=== PATIENT | female | born 1985 | race African-American/Black ===

== ENCOUNTER 2017-08-12 18:31 | Inpatient (IN) ==
[2017-08-12] MEDS ORDERED: LACTATED RINGERS 1,000 ML IV ONE (19:06)
[2017-08-12] MEDS ORDERED: ONDANSETRON 4 MG/2 ML VIAL IV ONE (19:43)
[2017-08-12] MEDS ORDERED: MEPERIDINE 25 MG/1 ML VIAL IV ONE (19:44)
[2017-08-12] MEDS ORDERED: ONDANSETRON 4 MG/2 ML VIAL IV PRN (20:21)
[2017-08-12] MEDS ORDERED: MEPERIDINE 50 MG/1 ML VIAL IM PRN (20:21)
[2017-08-12] MEDS ORDERED: LACTATED RINGERS 250 ML IV ONE (20:21)
[2017-08-12] MEDS ORDERED: BUTORPHANOL 1 MG/ML VIAL IV PRN (20:21)
[2017-08-12] MEDS: LACTATED RINGERS 1,000 ML IV SCH (21:09)
[2017-08-12 21:29] LABS: Basophils % 0.2 % (0.0-0.8); Eosinophils % 0.1 % (0.00-10.9); Hematocrit 33.6 VOL% (35.7-47.0); Immature Granulocytes % 0.7 %; Immature Granulocytes Absolute 0.08 #; Lymphocytes # 1.6 10*3/uL (1.4-4.0); Mean Corpuscular HGB Conc 32.7 GM/DL (32-36); Mean Corpuscular Hemoglobin 27 PG (27-34); Mean Corpuscular Volume 81.4 FL (87-102); Mean Platelet Volume 11.8 FL (9.6-12.0); Monocytes # 0.7 10*3/uL (0.11-0.8); Monocytes % 6.5 % (1.7-12.7); Neutrophils # 8.8 10*3/uL (1.4-7.4); Neutrophils % 78.5 % (38.7-73.9); Platelet Count 272 T/CUMM (130-400); Red Blood Count 4.13 MC/CUMM (3.8-5.5); Red Cell Distribution Width 17.1 % (9.3-17.3); White Blood Count 11.2 T/CUMM (4-12)
[2017-08-13] MEDS: MEPERIDINE 50 MG/1 ML VIAL IV PRN ×2 (00:13→05:20)
[2017-08-13] MEDS ORDERED: OXYTOCIN/LR 20 UNIT/1,000 ML BAG IV SCH (00:30)
[2017-08-13] MEDS: LACTATED RINGERS 1,000 ML IV SCH ×2 (05:04→12:45)
[2017-08-13] MEDS ORDERED: diphenhydrAMINE 50 MG/1 ML VIAL IV PRN ×2 (06:13)
[2017-08-13] MEDS ORDERED: hydrOXYzine HCL 25 MG/1 ML VIAL IM PRN (06:13)
[2017-08-13] MEDS ORDERED: ONDANSETRON 4 MG/2 ML VIAL IV ONE (06:13)
[2017-08-13] MEDS ORDERED: PROMETHAZINE 25 MG/1 ML VIAL IM ONE (06:13)
[2017-08-13] MEDS ORDERED: ePHEDrine 50 MG/ML AMP IV PRN (06:13)
[2017-08-13] MEDS ORDERED: FAMOTIDINE 20 MG/2 ML VIAL IV ONE (06:25)
[2017-08-13] MEDS ORDERED: CITRIC ACID/SODIUM CITRATE 30 ML UDCUP PO ONE (06:25)
[2017-08-13] MEDS ORDERED: fentaNYL 2 MCG/ROPIV 0.2% EPID 150 ML EPIDURAL SCH (06:30)
[2017-08-13] MEDS ORDERED: WITCH HAZEL PADS 100/JAR TOP PRN (07:44)
[2017-08-13] MEDS ORDERED: OXYTOCIN/LR 20 UNIT/1,000 ML BAG IV ONE (07:44)
[2017-08-13] MEDS ORDERED: oxyCODONE/ACETAMINOPHEN 5-325 MG TABLET PO PRN ×2 (07:44)
[2017-08-13] MEDS ORDERED: MEASLES/MUMPS/RUBELLA VACCINE 0.5 ML VIAL SUBCUT ONE (07:44)
[2017-08-13] MEDS ORDERED: ACETAMINOPHEN 325 MG TABLET PO PRN (07:44)
[2017-08-13] MEDS ORDERED: DIPH/TET/ACEL PERT BOOSTER VACCINE 0.5 ML VIAL IM ONE (07:44)
[2017-08-13] MEDS ORDERED: HYDROCORTISONE 2.5% RECTAL CREAM 30 GM TUBE TOP PRN (07:44)
[2017-08-13] MEDS ORDERED: RHO(D) IMMUNE GLOBULIN 300 MCG SYRINGE IM ONE (07:44)
[2017-08-13] MEDS ORDERED: BISACODYL 10 MG SUPP RECTAL PRN (07:44)
[2017-08-13] MEDS ORDERED: BENZOCAINE 20%/MENTHOL 0.5% SPRAY 56 GM CAN TOP PRN (07:44)
[2017-08-13] MEDS ORDERED: LANOLIN 50% CREAM 0.3 OZ TUBE TOP PRN (07:44)
[2017-08-13] MEDS ORDERED: ONDANSETRON 4 MG/2 ML VIAL IV PRN (07:44)
[2017-08-13] MEDS: IBUPROFEN 800 MG TABLET PO PRN (20:59)
[2017-08-13] MEDS: DOCUSATE SODIUM 100 MG CAPSULE PO SCH (21:00)
[2017-08-14 06:47] LABS: Basophils % 0.3 % (0.0-0.8); Eosinophils # 0.3 10*3/uL (0.0-0.87); Eosinophils % 2.4 % (0.00-10.9); Hematocrit 28.2 VOL% (35.7-47.0); Hemoglobin 9.1 GM/DL (12.0-16.0); Immature Granulocytes % 0.5 %; Immature Granulocytes Absolute 0.06 #; Lymphocytes # 3.2 10*3/uL (1.4-4.0); Lymphocytes % 26.7 % (21.3-54.2); Mean Corpuscular HGB Conc 32.3 GM/DL (32-36); Mean Corpuscular Hemoglobin 27 PG (27-34); Mean Corpuscular Volume 82.2 FL (87-102); Mean Platelet Volume 11.6 FL (9.6-12.0); Monocytes # 1.1 10*3/uL (0.11-0.8); Monocytes % 9.1 % (1.7-12.7); Neutrophils # 7.3 10*3/uL (1.4-7.4); Platelet Count 240 T/CUMM (130-400); Red Blood Count 3.43 MC/CUMM (3.8-5.5); Red Cell Distribution Width 16.7 % (9.3-17.3); White Blood Count 11.9 T/CUMM (4-12)
[2017-08-14 07:28] LABS: Eosinophils 2 % (0-10); Hypochromasia 1+; Lymphocytes 23 % (20-55); Microcytosis 1+; Platelet Estimate Adequate; Segmented Neutrophils 66 % (50-85); Total Cells Counted 100
[2017-08-14] MEDS: FERROUS SULFATE 325 MG TABLET PO SCH (08:51)
[2017-08-14] MEDS: DOCUSATE SODIUM 100 MG CAPSULE PO SCH ×2 (08:52→20:56)
[2017-08-14] MEDS: IBUPROFEN 800 MG TABLET PO PRN (15:58)
[2017-08-15] MEDS: IBUPROFEN 800 MG TABLET PO PRN (07:16)
[2017-08-15 08:07] VITALS: BP 113/70
[2017-08-15] MEDS: DOCUSATE SODIUM 100 MG CAPSULE PO SCH ×2 (09:06→09:07)
[2017-08-15] MEDS: FERROUS SULFATE 325 MG TABLET PO SCH (09:07)
== END 2017-08-15 14:00 | disposition home or self-care (01) | DRG 560 ==
LOC: N.LDOUT 18:31 → N.LD 18:44 → N.OB 08-13 11:03
PROVIDERS: ADMIT Obstetrics & Gynecology; ATTEND Obstetrics & Gynecology